=== PATIENT | female | born 1965 | race Caucasian/White ===

== ENCOUNTER 2018-11-13 23:56 | Emergency (ER) | payer OTHER ==
[~2018-11-13] VITALS: Ht 165.1 cm; Wt 61.7 kg
[2018-11-14 00:02] VITALS: Ht 165.1 cm; Wt 61.7 kg
[2018-11-14 01:24] VITALS: BP 132/68
== END 2018-11-14 01:24 | disposition home or self-care (01) ==
LOC: ED 23:56
DX: R09.1 Pleurisy (principal); G58.0 Intercostal neuropathy; Z88.8 Allergy status to other drugs, medicaments and biological substances
CPT/HCPCS: J1885; Q0092

== ENCOUNTER 2019-02-25 02:37 | Emergency (ER) | payer OTHER ==
[~2019-02-25] VITALS: Ht 165.1 cm; Wt 59.0 kg
[2019-02-25 02:55] VITALS: Ht 165.1 cm; Wt 59.0 kg
[2019-02-25 05:25] VITALS: BP 113/61
== END 2019-02-25 05:25 | disposition home or self-care (01) ==
LOC: ED 02:37
DX: S93.602A Unspecified sprain of left foot, initial encounter (principal); Z88.8 Allergy status to other drugs, medicaments and biological substances; Z88.6 Allergy status to analgesic agent; W20.8XXA Other cause of strike by thrown, projected or falling object, initial encounter; Y93.89 Activity, other specified; Y92.89 Other specified places as the place of occurrence of the external cause; Y99.8 Other external cause status

== ENCOUNTER 2019-10-04 10:38 | Emergency (ER) | payer OTHER ==
[~2019-10-04] VITALS: Ht 165.1 cm; Wt 59.0 kg
[2019-10-04 10:43] VITALS: BP 130/74; Ht 165.1 cm; Wt 59.0 kg
[2019-10-04] MEDS ORDERED: lexapro (11:04)
== END 2019-10-04 12:53 | disposition home or self-care (01) ==
LOC: ED 10:38
DX: L03.116 Cellulitis of left lower limb (principal); M54.2 Cervicalgia; Z88.6 Allergy status to analgesic agent; Z88.8 Allergy status to other drugs, medicaments and biological substances; Z98.890 Other specified postprocedural states
CPT/HCPCS: 90715

== ENCOUNTER 2019-10-06 10:02 | Emergency (ER) | payer OTHER ==
[~2019-10-06] VITALS: Ht 165.1 cm; Wt 59.0 kg
[~2019-10-06 10:02] MED LIST: lexapro
[2019-10-06 10:06] VITALS: Ht 165.1 cm; Wt 59.0 kg
[2019-10-06 11:32] VITALS: BP 103/49
== END 2019-10-06 11:32 | disposition home or self-care (01) ==
LOC: ED 10:02
DX: L03.116 Cellulitis of left lower limb (principal); Z48.01 Encounter for change or removal of surgical wound dressing; Z88.8 Allergy status to other drugs, medicaments and biological substances; Z88.6 Allergy status to analgesic agent; Z90.89 Acquired absence of other organs